=== PATIENT | male | born 1940 | race Caucasian/White ===

== ENCOUNTER 2017-12-24 16:38 | Inpatient (IN) ==
[2017-12-25] MEDS ORDERED: Naloxone 0.4 MG/ML INJ IVP PRN ×2 (06:07→14:53)
[2017-12-25] MEDS ORDERED: 0.9 % Sodium Chloride 1,000 ML IVC ONE (06:09)
--- NOTE | 2017-12-25 06:15 | Internal Med History&Physical ---
Date of Encounter: 12/25/17 Time of Encounter: 03:00 Internal Medicine - H&P: HPI Chief complaint: Pancreatitis Admitted From: Emergency Dept Plans for Post Hospital Care: Home History of present illness: Mr. Palacio is a 77 year old male Patient presented to his oncologist due to stomach pain, and a CT scan was ordered. Results of CT scan showed pancreatitis. Patient was then contacted and instructed to go the emergency room for further evaluation. He states that he had been having abdominal pain for a few weeks, which is never had before. 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 He follows up with [facility] for his liver enzymes and monitoring. He is never had pancreatitis before in the past. After he got the CT scan, he did go and have lunch and denies having issues with worsened abdominal pain. He also denies having a fever, nausea, vomiting, diarrhea, constipation, chest pain and shortness of breath. He presented to the [facility] emergency room after receiving a call from the oncologist regarding the CT results. CBC showed platelets of 91, BMP showed elevated creatinine. His lipase was 930. Other labs consistent with his history of cirrhosis including INR of 1.86, Elevated AST, ALT and total bilirubin. An abdominal ultrasound showed gallstones, cirrhosis but no biliary obstruction. At [facility] does not have GI, patient was transferred to [place] for further management. Upon my assessment, patient denies complaints. He says that his pain is centrally located, but at rest he does not really feel it. He has a distended abdomen at baseline, but does not take diuretics. He only takes medication for his blood pressure. Past Med Surg Social Fam HX - Past Medical History Medical history: aortic aneurysm, hepatitis, hypertension Additional medical history: ETOH (quit one year ago). acute hepatitis in childhood Psychiatric history: other - Past Surgical History Surgical History: orthopedic, other Additional surgical history: right TKR, AAA repair - Social History Smoking Status: Former smoker Alcohol use: none Drug use: none Internal Medicine - H&P: Meds Allergy/AdvReac Type Severity Reaction Status Date / Time Sulfa (Sulfonamide Allergy Rash Verified 12/24/17 19:23 Antibiotics) All Systems PM: A 10-system review of systems was performed and is negative for pertinent findings except as documented above in the HPI. - Constitutional Vitals: Temp Pulse Resp BP Pulse Ox 98.8 F 86 16 117/74 93 12/25/17 05:15 12/25/17 05:15 12/25/17 05:15 12/25/17 05:15 12/25/17 05:15 General appearance: Present: cooperative, pleasant, no acute distress, answers questions appropriately Exam: As above - Head Head exam: Present: normal inspection - Eye Eye exam: Present: EOMI, normal appearance. Absent: scleral icterus - Respiratory Respiratory exam: Present: CTAB. Absent: respiratory distress, rhonchi, wheezes - Cardiovascular Cardiovascular exam: Present: RRR. Absent: diastolic murmur, systolic murmur - GI/Abdominal GI/Abdominal exam: Present: normal bowel sounds, soft, tenderness. Absent: rebound Additional comments: Tenderness with palpation over the epigastric region, abdomen is enlarged, but patient states that it is at his baseline. - Extremities Exam Extremities exam: Present: warm, radial pulses palpable and symmetrical. Absent: calf tenderness, pedal edema, tenderness - Neurological Exam Neurological exam: Present: no focal deficits, strengths equal and symetr throughout. Absent: motor sensory deficit, facial droop, speech deficit - Skin Skin exam: Present: dry, normal color, warm Internal Med - H&P Results - Labs CBC & Chem 7: 12/25/17 06:17 12/25/17 06:17 - Assessment and plan (1) Pancreatitis Current Visit: Yes Status: Acute Assessment and plan: Elevated lipase at 930. Patient has some tenderness to the epigastric and central abdomen. Patient currently NPO. Likely can advance diet as tolerated, as his pain level is not high IV fluids Continue to monitor. Qualifiers: Qualified Code(s): K85.90 - Acute pancreatitis without necrosis or infection, unspecified (2) Epigastric abdominal pain Current Visit: Yes Status: Acute Assessment and plan: Secondary to pancreatitis. Treatment as above. (3) Cirrhosis Current Visit: Yes Status: Acute Assessment and plan: Chronic, secondary to alcohol use Following up oncology for this outpatient. Qualifiers: Hepatic cirrhosis type: alcoholic cirrhosis Ascites presence: without ascites Qualified Code(s): K70.30 - Alcoholic cirrhosis of liver without ascites (4) Thrombocytopenia Current Visit: Yes Status: Acute Assessment and plan: Likely secondary to cirrhosis (5) Elevated INR Current Visit: Yes Status: Acute Assessment and plan: Likely secondary to cirrhosis Continue to monitor. (6) BRENDA (acute kidney injury) Current Visit: Yes Status: Acute Assessment and plan: IV fluids given Recheck labs in the AM (7) History of alcohol use Current Visit: Yes Status: Acute Assessment and plan: Continue to monitor. (8) DVT prophylaxis Current Visit: Yes Status: Acute Assessment and plan: SCDs - Time Spent With Patient Total time spent is greater than 50% in coordination of care (as documented) at patient's floor/unit and/or counseling patient: Greater than 35 minutes
[2017-12-25 06:27] LABS: Hematocrit 36.6 % (37.5-50.1); Hemoglobin 12.5 g/dL (12.9-16.9); Mean Corpuscular HGB Conc 34.2 g/dL (31.6-35.5); Red Cell Distribution Width 14.7 % (11.5-14.5)
[2017-12-25 06:29] LABS: Immature Platelets 7.9 % (1.1-6.1); Mean Corpuscular Hemoglobin 31.5 pg (28.0-33.3); Mean Corpuscular Volume 92.2 fL (83.0-100.0); Mean Platelet Volume 11.6 fL (9.4-12.4); Red Blood Count 3.97 M/mcL (4.19-5.50)
[2017-12-25 06:46] LABS: BUN/Creatinine Ratio 19 (6-26); Blood Urea Nitrogen 26 mg/dL (8-23); Calcium 7.8 mg/dL (8.6-10.3); Carbon Dioxide 23 mEq/L (23-29); Chloride 109 mEq/L (98-107); Glucose 94 mg/dL (70-105); Osmolality,Calculated 289 (280-300); Potassium 4.5 mEq/L (3.5-5.1); Sodium 137 mEq/L (136-145); eGFR For Non-African Americans 51 (> 60)
[2017-12-25] MEDS ORDERED: 0.9 % Sodium Chloride 1,000 ML ONE (09:09)
--- NOTE | 2017-12-25 12:06 | Event Note ---
Date of Encounter: 12/25/17 Time of Encounter: 11:53 patient seen and examined at bedside abdominal pain. CT scan at [facility] shows pancreatitis,lipase elevated at 930. Elevated AST, ALT as well as elevated bilirubin. ultrasound of abdomen completed at [facility] showing non obstructing gallstones and cirrhosis. He is currently being treated for acute pancreatitis. He reports no prior episodes of pancreatitis. Has a h/o ETOH cirrhosis, follows with oncology for treatment. REVIEW OF SYSTEMS GENERAL: Negative for any vomiting, fevers, chills, or weight loss. Reporting intermittent nausea,however is not nauseous at this time NEUROLOGIC: Negative for any blurry vision, blind spots, double vision, facial asymmetry, dysphagia, dysarthria, hemiparesis, hemisensory deficits, vertigo, ataxia. HEENT: Negative for any head trauma, neck trauma, neck stiffness, photophobia, phonophobia, sinusitis, rhinitis. CARDIAC: Negative for any chest pain, dyspnea on exertion, paroxysmal nocturnal dyspnea, peripheral edema. PULMONARY: Negative for any shortness of breath, wheezing, COPD, or TB exposure. GASTROINTESTINAL: Negative for vomiting, bright red blood per rectum, melena. ositive for right and left upper negra GENITOURINARY: Negative for any dysuria, hematuria, incontinence. PHYSICAL EXAMINATION: GENERAL: The patient is an ill appearing elder male in no acute distress. He is A&O x3. HEENT: Head is normocephalic and atraumatic. Extraocular muscles are intact. Pupils are equal, round, and reactive to light and accommodation. NECK: Supple. No carotid bruits. No lymphadenopathy or thyromegaly. LUNGS: Clear to auscultation AP and L. HEART: Regular rate and rhythm, S1, S2 without murmur. ABDOMEN: Soft with Positive bowel sounds. No hepatosplenomegaly was noted. ascites, mild B/L upper quadrant abdominal tenderness EXTREMITIES: Without any cyanosis, clubbing, rash, lesions or edema. NEUROLOGIC: Cranial nerves II through XII are grossly intact. PSYCHIATRIC: Flat affect, but denies suicidal or homicidal ideations. SKIN: No ulceration or induration present. PLAN: 1 pancreatitis-continue NPO status, continue IV fluids, treat pain as needed, recheck lipase and labs in a.m. 2 epigastric abdominal pain-secondary to acute pancreatitis 3 Cirrhosis-follows with oncology. Cirrhosis secondary to alcohol abuse 4 Thrombocytopenia-secondary to cirrhosis 5 Elevated INR-secondary to cirrhosis monitor for signs or symptoms of bleeding 6 BRENDA-continue IV fluids recheck labs in 7 History of alcohol abuse-continue to monitor 8 DVT prophylaxis-Continue SCDs
[2017-12-25] MEDS: 0.9 % Sodium Chloride 1,000 ML IVC SCH ×2 (12:49→19:22)
[2017-12-26] MEDS: 0.9 % Sodium Chloride 1,000 ML IVC SCH (02:13)
[2017-12-26 04:40] LABS: Hemoglobin 12.4 g/dL (12.9-16.9); Red Cell Distribution Width 14.7 % (11.5-14.5)
[2017-12-26 04:42] LABS: Hematocrit 36.5 % (37.5-50.1); Immature Platelets 8.2 % (1.1-6.1); Mean Corpuscular Hemoglobin 31.7 pg (28.0-33.3); Mean Corpuscular Volume 93.4 fL (83.0-100.0); Mean Platelet Volume 11.7 fL (9.4-12.4); Red Blood Count 3.91 M/mcL (4.19-5.50)
[2017-12-26 04:58] LABS: Alanine Aminotransferase 42 Units/L (7-52); Albumin 2.1 g/dL (3.5-5.7); Albumin/Globulin Ratio 0.6 (1.1-2.2); Alkaline Phosphatase 161 Units/L (34-104); Aspartate Amino Transferase 61 Units/L (13-39); BUN/Creatinine Ratio 20 (6-26); Bilirubin,Direct 1.3 mg/dL (0.0-0.2); Bilirubin,Indirect 1.9 mg/dL (0.0-1.2); Bilirubin,Total 3.2 mg/dL (0.3-1.0); Blood Urea Nitrogen 24 mg/dL (8-23); Calcium 7.4 mg/dL (8.6-10.3); Carbon Dioxide 17 mEq/L (23-29); Chloride 113 mEq/L (98-107); Globulin 3.5 g/dL (2.4-3.5); Glucose 80 mg/dL (70-105); Lipase 126 Units/L (11-82); Osmolality,Calculated 293 (280-300); Potassium 4.3 mEq/L (3.5-5.1); Sodium 140 mEq/L (136-145); Total Protein 5.6 g/dL (6.4-8.9); eGFR For Non-African Americans 60 (> 60)
--- NOTE | 2017-12-26 09:27 | Internal Med Progress Note ---
Hospitalist Progress Note - Encounter Date of Encounter: 12/26/17 Time of Encounter: 09:24 - Subjective Interval History: No acute changes overnight. Patient denying abdominal pain, nausea and/or vomiting. Discussed plan of care including starting clear liquid diet and discontinuing IV fluids. Patient has been informed to let the staff know should he begin to experience abdominal pain, nausea and vomiting after resuming diet. - Exam Vitals: Temp Pulse Resp BP Pulse Ox 98.5 F 84 16 112/73 92 12/26/17 06:47 12/26/17 06:47 12/26/17 06:47 12/26/17 06:47 12/26/17 06:47 Exam: PHYSICAL EXAMINATION: GENERAL: The patient is a well-developed, well-nourished male in no apparent distress. He is alert and oriented x3. HEENT: Head is normocephalic and atraumatic. Extraocular muscles are intact. Pupils are equal, round, and reactive to light and accommodation. NECK: Supple. No carotid bruits. No lymphadenopathy or thyromegaly. LUNGS: Clear to auscultation bilaterally AP and L. HEART: Regular rate and rhythm, S1, S2 without murmur. ABDOMEN: Soft, nontender. Positive bowel sounds. No hepatosplenomegaly was noted. Moderate ascites EXTREMITIES: Without any cyanosis, clubbing, rash, lesions or edema. NEUROLOGIC: Without slurred speech or facial droop - Assessment and Plan (1) Pancreatitis Current Visit: Yes Status: Acute (2) BRENDA (acute kidney injury) Current Visit: Yes Status: Acute (3) Elevated INR Current Visit: Yes Status: Acute (4) Epigastric abdominal pain Current Visit: Yes Status: Acute (5) History of alcohol use Current Visit: Yes Status: Acute (6) Thrombocytopenia Current Visit: Yes Status: Acute (7) DVT prophylaxis Current Visit: Yes Status: Acute - Summary of Assessment and Plan Summary of Assessment and Plan: MR. Fernández is a 77-year-old male with a history of alcohol abuse and alcohol cirrho sis being followed by an oncologist at [facility]. Presents to [facility] from [facility] with complaints of abdominal pain, nausea and vomiting. CT imaging completed at [facility] reveals pancreatitis, lipase at [facility] 930 more than 3 times upper limits of normal. He has been admitted for treatment of acute pancreatitis. No prior history of pancreatitis. 12/26/17--overnight patient was made NPO and was treated with IV fluids. Repeat lipase improving overnight, no longer having abdominal pain and nausea and/or vomiting. We will trial clear with diet this morning with plans to advance as tolerated. If patient continues to improve consider discharge this evening or cardiac cath technologist. Diagnosis 1 trial clear liquid diet, discontinue IV fluids, treat pain as needed 2 epigastric abdominal pain-secondary to acute pancreatitis 3 Cirrhosis-follows with oncology. Cirrhosis secondary to alcohol abuse 4 Thrombocytopenia-secondary to cirrhosis 5 Elevated INR-secondary to cirrhosis monitor for signs or symptoms of bleeding 6 BRENDA-renal function returned to normal with S CR 1.19 7 History of alcohol abuse-continue to monitor--states last drink was greater than 1 year ago education provider regarding the need for continued cessation of alcohol 8 DVT prophylaxis-Continue SCDs - Time Spent with Patient Total time spent is greater than 50% in coordination of care (as documented) at patient's floor/unit and/or counseling patient: less than 15 minutes Plan of Care Discussed with: patient Internal Medicine: Result - Labs CBC & Chem 7: 12/26/17 03:52 12/26/17 03:52 Labs: Short CBC 12/26/17 Range/Units 03:52 WBC 5.2 (4.3-11.1) K/mcL Hgb 12.4 L (12.9-16.9) g/dL Hct 36.5 L (37.5-50.1) % Plt Count 66 L (140-400) K/mcL BMP 12/26/17 03:52 Sodium 140 Potassium 4.3 Chloride 113 H Carbon Dioxide 17 L BUN 24 H Creatinine 1.19 Glucose 80 Calcium 7.4 L Liver Function 12/26/17 Range/Units 03:52 Total Bilirubin 3.2 H (0.3-1.0) mg/dL Direct Bilirubin 1.3 H (0.0-0.2) mg/dL AST 61 H (13-39) Units/L ALT 42 (7-52) Units/L Alkaline Phosphatase 161 H (34-104) Units/L Albumin 2.1 L (3.5-5.7) g/dL Consult Discharge Plan - Plan Referrals: Fredy Claros MD [Primary Care Provider] - (1) Pancreatitis Qualifiers: Qualified Code(s): K85.90 - Acute pancreatitis without necrosis or infection, unspecified
[2017-12-27] MEDS ORDERED: *HR* Metoprolol 5 MG/5 ML VIAL IVP ONE ×2 (05:11→05:19)
[2017-12-27] MEDS ORDERED: 0.9 % Sodium Chloride 1,000 ML ONE ×2 (05:13→06:34)
[2017-12-27] MEDS ORDERED: 0.9 % Sodium Chloride 1,000 ML IVC ONE ×2 (05:19→06:37)
[2017-12-27 06:01] LABS: Hematocrit 37.2 % (37.5-50.1); Hemoglobin 12.6 g/dL (12.9-16.9); Mean Corpuscular HGB Conc 33.9 g/dL (31.6-35.5); Mean Corpuscular Hemoglobin 31.4 pg (28.0-33.3); Mean Corpuscular Volume 92.8 fL (83.0-100.0); Mean Platelet Volume 11.9 fL (9.4-12.4); Red Blood Count 4.01 M/mcL (4.19-5.50); Red Cell Distribution Width 14.6 % (11.5-14.5)
[2017-12-27 06:03] LABS: Platelet Count 84 K/mcL (140-400)
[2017-12-27 06:21] LABS: BUN/Creatinine Ratio 19 (6-26); Blood Urea Nitrogen 22 mg/dL (8-23); Calcium 7.4 mg/dL (8.6-10.3); Carbon Dioxide 17 mEq/L (23-29); Chloride 115 mEq/L (98-107); Glucose 118 mg/dL (70-105); Osmolality,Calculated 292 (280-300); Sodium 139 mEq/L (136-145); Troponin I < 0.03 ng/mL (< 0.04); eGFR For Non-African Americans > 60 (> 60)
--- NOTE | 2017-12-27 10:12 | Internal Med Progress Note ---
Hospitalist Progress Note - Encounter Date of Encounter: 12/27/17 Time of Encounter: 10:08 - Subjective Interval History: Here for acute pancreatitis, nausea and abdominal pain have resolved. Overnight patient had an episode of SVT and was given 5 mg IV push metoprolol. SVT subsided, patient hemodynamically stable, heart rate in the 80s. - Exam Vitals: Temp Pulse Resp BP Pulse Ox 97.9 F 74 16 93/65 96 12/27/17 10:01 12/27/17 10:01 12/27/17 10:01 12/27/17 10:01 12/27/17 10:01 Exam: PHYSICAL EXAMINATION: GENERAL: The patient is a well-developed, well-nourished male in no apparent distress. He is alert and oriented x3. HEENT: Head is normocephalic and atraumatic. Extraocular muscles are intact. Pupils are equal, round, and reactive to light and accommodation. NECK: Supple. No carotid bruits. No lymphadenopathy or thyromegaly. LUNGS: Clear to auscultation bilaterally AP and L. HEART: Regular rate and rhythm, S1, S2 without murmurs, rubs or gallops ABDOMEN: Soft, nontender. Positive bowel sounds. No hepatosplenomegaly was noted. Moderate ascites EXTREMITIES: Without any cyanosis, clubbing, rash, lesions or edema. NEUROLOGIC: Without slurred speech or facial droop - Assessment and Plan (1) Pancreatitis Current Visit: Yes Status: Acute (2) BRENDA (acute kidney injury) Current Visit: Yes Status: Acute (3) Elevated INR Current Visit: Yes Status: Acute (4) Epigastric abdominal pain Current Visit: Yes Status: Acute (5) History of alcohol use Current Visit: Yes Status: Acute (6) Thrombocytopenia Current Visit: Yes Status: Acute (7) DVT prophylaxis Current Visit: Yes Status: Acute - Summary of Assessment and Plan Summary of Assessment and Plan: MR. Palacio is a 77-year-old male with a history of alcohol abuse and alcohol cirrhosis being followed by an oncologist at [facility]. Presen ts to [facility] from [facility] with complaints of abdominal pain, nausea and vomiting. CT imaging completed at [facility] reveals pancreatitis, lipase at [facility] 930 more than 3 times upper limits of normal. He has been admitted for treatment of acute pancreatitis. No prior history of pancreatitis. 12/26/17--overnight patient was made NPO and was treated with IV fluids. Repeat lipase improving overnight, no longer having abdominal pain and nausea and/or vomiting. We will trial clear with diet this morning with plans to advance as tolerated. If patient continues to improve consider discharge this evening or neuroscience director na. 12/27/17--developed SVT overnight was given 5 mg IV push metoprolol and converted to normal sinus rhythm. Remains dynamically stable with hypertension are in the 80s. His diagnosis of pancreatitis the patient's abdominal pain and nausea have resolved and he is able to tolerate a regular diet. Continue to monitor throughout afternoon and consider discharge this afternoon or tomorrow. Diagnosis 1 pancreatitis-increase diet to regular, continue IV fluids for an additional liter, treat pain as needed 2 epigastric abdominal pain-resolved 3 Cirrhosis-follows with oncology. Cirrhosis secondary to alcohol abuse 4 Thrombocytopenia-secondary to cirrhosis 5 Elevated INR-secondary to cirrhosis monitor for signs or symptoms of bleeding 6 BRENDA-renal function returned to normal with S CR 1.19 7 History of alcohol abuse-continue to monitor--states last drink was greater than 1 year ago education provider regarding the need for continued cessation of alcohol 8 DVT prophylaxis-Continue SCDs 9 SVT-overnight developed SVT. Patient was nothing by mouth with pancreatitis and did not receive his beta elizabeth. Likely exacerbating event of SVT. Denies any prior history of cardiac arrhythmias including A. fib, atrial flutter and/or SVT. He was given 5 mg metoprolol IV push and heart rate returned to normal sinus rhythm. He remains hemodynamically stable with HR in the 80s. Continue to closely monitor on telemetry. Resume beta elizabeth, patient tolerating oral diet. - Time Spent with Patient Total time spent is greater than 50% in coordination of care (as documented) at patient's floor/unit and/or counseling patient: less than 15 minutes Plan of Care Discussed with: patient Internal Medicine: Result - Labs CBC & Chem 7: 12/27/17 05:41 12/27/17 05:41 Labs: Short CBC 12/27/17 Range/Units 05:41 WBC 7.0 (4.3-11.1) K/mcL Hgb 12.6 L (12.9-16.9) g/dL Hct 37.2 L (37.5-50.1) % Plt Count 84 L (140-400) K/mcL BMP 12/27/17 05:41 Sodium 139 Potassium 4.0 Chloride 115 H Carbon Dioxide 17 L BUN 22 Creatinine 1.17 Glucose 118 H Calcium 7.4 L Cardiac Enzymes 12/27/17 Range/Units 05:41 Troponin I < 0.03 (< 0.04) ng/mL Consult Discharge Plan - Plan Referrals: Fredy Claros MD [Primary Care Provider] - (1) Pancreatitis Qualifiers: Qualified Code(s): K85.90 - Acute pancreatitis without necrosis or infection, unspecified
[2017-12-27] MEDS ORDERED: 0.9 % Sodium Chloride 1,000 ML IVC SCH (10:15)
[2017-12-27] MEDS: Multivit/Ca/Min/Fe/FA 1 TAB TABLET PO SCH ×2 (12:01→12:09)
[2017-12-27] MEDS: Metoprolol XL (24 HR) Succ 25 MG TAB.ER.24H PO SCH (12:02)
[2017-12-27] MEDS: Aspirin Enteric Coated 81 MG Tablet PO SCH (12:09)
--- NOTE | 2017-12-27 19:59 | Electrocardiograph Report ---
[place] [id number] Test Date: 2017-12-27 Pat Name: Triston Palacio Department: 115 Room: 3A Gender: M [employer] Helper: WENDY : 1940 Requested By: Ariel Agrawal Order Number: [id number] Reading MD: Sergio Saldana Measurements Intervals [place] Rate: 156 P: NE: 0 QRS: -37 QRSD: 95 T: 93 QT: 283 QTc: 371 Interpretive Statements SUPRAVENTRICULAR TACHYCARDIA MARKED LEFT AXIS DEVIATION NONSPECIFIC ST & T-WAVE ABNORMALITY Electronically Signed On 12-27-2017 19:57:42 EDT by Sergio Saldana
[2017-12-28 07:19] VITALS: BP 103/65
[2017-12-28] MEDS: Multivit/Ca/Min/Fe/FA 1 TAB TABLET PO SCH (08:34)
[2017-12-28] MEDS: Aspirin Enteric Coated 81 MG Tablet PO SCH (08:34)
[2017-12-28] MEDS: Metoprolol XL (24 HR) Succ 25 MG TAB.ER.24H PO SCH (08:35)
--- NOTE | 2017-12-28 08:49 | Discharge Summary ---
- NOTES TO OUTPATIENT PROVIDER Notes to Outpatient Provider: Instructed to follow-up with PCP in one week. New diagnosis of acute pancreatitis. He reports he has been following with PCP and oncologist at [facility] for his alcoholic cirrhosis. Discharge referral has been made to [facility] to further monitor cirrhosis; please ensure follow-up Date of Encounter: 12/28/17 Time of Encounter: 08:47 - Discharge Diagnosis (1) Pancreatitis Priority: Primary Status: Resolved Qualifiers: Qualified Code(s): K85.90 - Acute pancreatitis without necrosis or infection, unspecified (2) BRENDA (acute kidney injury) Priority: Secondary Status: Resolved (3) Elevated INR Priority: Secondary Status: Acute (4) Epigastric abdominal pain Priority: Secondary Status: Resolved (5) History of alcohol use Priority: Secondary Status: Acute Assessment and Plan: Reports he no longer drinks Strongly encouraged continued alcohol cessation (6) Thrombocytopenia Priority: Secondary Status: Acute (7) DVT prophylaxis Priority: Secondary Status: Acute Hospital course: Mr. Palacio is a 77 year old male who [facility] He was found to have acute pancreatitis. He was made strict NPO and treated with IV fluids. Patient's condition improved, lipase returned to normal. No longer having abdominal pain and/or nausea and is able to tolerate a regular diet. Additionally, he was found to have an acute kidney injury but this also resolved with IV fluid resuscitation. Throughout stay the patient had a brief episode of atrial flutter with heart rate in the 150s, he was given one 5 mg dose of IV metoprolol and quickly converted to sinus rhythm without any further events. This was likely prompted by the fact that his oral beta elizabeth dose has been held. Upon resuming oral beta elizabeth dose he has had no additional events on telemetry. He remains in stable medical condition. He is being discharged home today with family. He has been Instructed to follow-up with PCP within one week. Additionally, he is instructed to continue to follow-up with the oncology department at [facility] who is assisting in managing his alcoholic cirrhosis. I have made a discharge referral to [facility] for further follow-up regarding cirrhosis. Discharge discussed with: patient - Time Spent with Patient Total time spent providing and/or coordinating discharge services: Less than 30 minutes - Discharge Medications Home Medications: Aspirin [Lo-Dose Aspirin EC] 81 mg PO DAILY 12/25/17 [History] Losartan Potassium [Cozaar] 50 mg PO DAILY 12/25/17 [History] Metoprolol XL (24 HR) Succ [Toprol Xl] 25 mg PO DAILY 12/25/17 [History] Multivit-Min/FA/Lycopen/Lutein [Adults 50+ Multivitamin Tablet] 1 tab PO DAILY 12/25/17 [History] Allergies/Adverse Reactions: Allergy/AdvReac Type Severity Reaction Status Date / Time Sulfa (Sulfonamide Allergy Rash Verified 12/24/17 19:23 Antibiotics) Date of admission: 12/25/17 14:53 Primary care physician: Fredy Claros MD Discharging clinician: [place] Anticipated date of discharge: 12/28/17 - Constitutional Vitals: Temp Pulse Resp BP Pulse Ox 98.2 F 90 15 103/65 93 12/28/17 07:15 12/28/17 07:15 12/28/17 07:15 12/28/17 07:15 12/28/17 07:15 General appearance: Present: cooperative, pleasant, no acute distress, answers questions appropriately Exam: PHYSICAL EXAMINATION: GENERAL: The patient is a well-developed, well-nourished male in no apparent distress. He is alert and oriented x3. HEENT: Head is normocephalic and atraumatic. Extraocular muscles are intact. Pupils are equal, round, and reactive to light and accommodation. NECK: Supple. No carotid bruits. No lymphadenopathy or thyromegaly. LUNGS: Clear to auscultation bilaterally AP and L. HEART: Regular rate and rhythm, S1, S2, without murmurs, rubs or gallops ABDOMEN: Soft, nontender. Positive bowel sounds. No hepatosplenomegaly was noted. Moderate ascites EXTREMITIES: Without any cyanosis, clubbing, rash, lesions or edema. NEUROLOGIC: Without slurred speech or facial droop - Patient Status Disposition: Home, Self-Care Condition: Good Functional capacity at discharge: independent ambulation Overall status at discharge: patient is progressing back to baseline - Discharge Instructions Instructions: Pancreatitis (DC) Follow Up With: Fredy Claros MD [Primary Care Provider] - 01/09/18 10:00 am (Follow up as scheduled.) - Diet and Activity Activity: increase activity as tolerated, resume usual activities as tolerated Diet: low fat, low cholesterol, low salt diet
== END 2017-12-28 10:41 | disposition home or self-care (01) | DRG 439 ==
LOC: 3ANU
PROVIDERS: ADMIT Internal Medicine; ATTEND Internal Medicine